=== PATIENT | female | born 1950 | race Caucasian/White ===

== ENCOUNTER 2024-01-13 00:22 | Emergency (ER) | payer OTHER, MEDICAID, SELFPAY ==
--- NOTE | 2024-01-13 01:11 | PC.NURSE ---
PT'S DAUGHTER SAID SHE WILL GO HOME. NO MORE BLEEDING.
--- NOTE | 2024-01-13 01:12 | PC.NURSE ---
NO ANSWER AT ER LOBBY OR OUTSIDE ER TO BE SEEN BY PROVIDER.
== END 2024-01-13 01:12 | disposition left against medical advice (07) ==
LOC: SERX 01:57
PROVIDERS: Emergency Provider Emergency Medicine
DX: Z53.21 Procedure and treatment not carried out due to patient leaving prior to being seen by health care provider (principal)

== ENCOUNTER 2024-03-29 18:32 | Emergency (ER) | payer OTHER, MEDICAID, SELFPAY ==
[2024-03-29 19:08] VITALS: BP 163/74; PULSE 96; RESP 19; TEMP 36.8; O2SAT 95
[2024-03-29 19:09] VITALS: BMI 26.2
--- NOTE | 2024-03-29 19:15 | EDRME_ITS ---
Rapid Medical Screening Exam [facility] [place] Arrival date/time: 03/29/24 18:32 73F with history of afib, COPD, ESRD, HTN, DM, and dementia presented with dysuria and yellow/green pus coming out of vaginal area. Patient/daughter deny sexual activity and are not suspicious of abuse. Chief Complaint: Urogenital-Female Vital signs: Vital Signs Temperature 98.2 F 03/29/24 19:08 Pulse Rate 96 03/29/24 19:08 Respiratory Rate 19 03/29/24 19:08 Blood Pressure 163/74 H 03/29/24 19:08 Pulse Oximetry (%) 95 03/29/24 19:08 Oxygen Delivery Method Room Air 03/29/24 19:08
[2024-03-29 20:00] LABS: Basophils # (Auto) 0.3 Thou/mm3 (0.0-0.2); Basophils % (Auto) 2 % (0-2.5); Eosinophils # (Auto) 0.3 Thou/mm3 (0.0-0.5); Eosinophils % (Auto) 1 % (0-10); Hematocrit 35.2 % (36.0-46.0); Hemoglobin 11.3 g/dL (12.0-16.0); Immature Granulocytes % (Auto) 5 % (0-0); Immature Granulocytes Auto 1.06 Thou/mm3 (0.00-0.00); Lymphocytes # (Auto) 2.4 Thou/mm3 (1.0-4.8); Lymphocytes % (Auto) 12 % (10-50); Mean Corpuscular HGB Conc 32.1 g/dl (31.0-37.0); Mean Corpuscular Hemoglobin 28.4 pg (25.0-35.0); Mean Corpuscular Volume 88 fL (80-100); Monocytes # (Auto) 2.6 Thou/mm3 (0.0-0.8); Monocytes % (Auto) 13 % (0-12); Neutrophils # (Auto) 13.5 Thou/mm3 (1.8-7.7); Neutrophils % (Auto) 67 % (37-80); Nucleated Red Blood Cell # 0.03 Thou/mm3 (0.00-0.00); Nucleated Red Blood Cell % 0 /100 WBC (0); Platelet Count 520 Thou/mm3 (140-440); RDW Standard Deviation 60.4 fL (36.4-46.3); Red Blood Count 3.98 Miln/mm3 (4.00-5.20)
[2024-03-29 20:01] LABS: Collection Type, Urine Catheter
[2024-03-29 20:10] LABS: Bilirubin,Urine Negative (Negative); Blood,Urine Trace (Negative); Clarity,Urine Clear (Clear/Hazy); Color,Urine Yellow (Lt Yel-Yel); Glucose, Urine 2+ (Negative); Hyaline Casts,Urine < 1 /hpf (0-1); Ketones,Urine Negative (Negative); Leukocyte Esterase,Urine Positive (Negative); Nitrite,Urine Negative (Negative); PH,Urine 7.5 (5.0-7.0); Protein,Urine 2+ (Neg - Trace); RBC,Urine 13 /hpf (0-3); Specific Gravity,Urine 1.014 (1.001-1.035); Squamous Epithelial Cell,Urine < 1 /hpf (0-5); Urobilinogen,Urine Negative mg/dL (0.0-1.0); WBC,Urine 25 /hpf (0-5)
[2024-03-29 20:18] LABS: Alanine Aminotransferase 38 U/L (10-49); Albumin, Serum 3.4 gm/dL (3.4-4.8); Albumin/Globulin Ratio 0.8 (1.2-2.2); Alkaline Phosphatase 206 U/L (46-116); Anion Gap 5 (7-16); Aspartate Amino Transferase 39 U/L (0-34); BUN/Creatinine Ratio 7 Ratio (12-20); Bilirubin,Total 0.2 mg/dL (0.3-1.2); Blood Urea Nitrogen 17 mg/dL (9-23); Calcium 9.2 mg/dL (8.3-10.6); Calcium (Corrected) 9.7 mg/dL (8.5-10.1); Carbon Dioxide 32.1 mMol/L (20.0-31.0); Chloride 101 mMol/L (98-107); Creatinine (Component) 2.6 mg/dL (0.6-1.3); Estimated Creatinine Clearance 14.8 mL/min (>60); Globulin 4.2 gm/dL (2.3-3.5); Glucose 217 mg/dL (74-106); Osmolality,Calculated 284 (275-295); Potassium 3.4 mMol/L (3.4-5.1); Sodium 138 mMol/L (136-145); Total Protein 7.6 gm/dL (5.7-8.2); eGFR 19 See Note
[2024-03-29 20:25] LABS: Culture Indicated,Urine Yes
--- NOTE | 2024-03-29 23:54 | PC.NURSE ---
no answer at er lobby or outside er to be put to room
--- NOTE | 2024-03-30 00:17 | PC.NURSE ---
NO ANSWER AT ER LOBBY OR OUTSIDE ER.
[2024-03-30 04:44] LABS: Path Review Blood Smear Sent to Pathologist
== END 2024-03-30 00:17 | disposition left against medical advice (07) ==
PROVIDERS: Physician Assistant; Emergency Provider Emergency Medicine; PCP Nurse Practitioner
DX: R30.0 Dysuria (principal); Z53.29 Procedure and treatment not carried out because of patient's decision for other reasons
CPT/HCPCS: 51701; 36415; 80053; 81001; 85025; 87086; 87491; 87591; 87661; 99281

== ENCOUNTER 2024-04-06 08:55 | Emergency (ER) | payer OTHER, MEDICAID, SELFPAY ==
[2024-04-06 08:59] VITALS: BP 119/54; PULSE 73; RESP 19; TEMP 36.6; O2SAT 95; BMI 22.3
--- NOTE | 2024-04-06 09:07 | PD.EDNV ---
Nausea/Vomit./Diarrhea-RME/HPI General Chief complaint: Nausea/Vomiting/Diarrhea Stated complaint: VOMITING/DIARRHEA Time Seen by Provider: 04/06/24 09:04 Arrival date/time: 04/06/24 08:55 Limitations: no limitations RME / HPI RME / HPI Narrative: Brought in by ambulance for vomiting and diarrhea for a month. Related Data Home Medications ?Medication ?Instructions ?Recorded ?Confirmed paroxetine HCl 40 mg tablet 40 mg PO QDAY 12/07/17 11/08/23 amlodipine 10 mg tablet 10 mg PO QDAY 05/15/18 11/13/23 sevelamer carbonate 800 mg tablet 800 mg PO TIDWM 01/22/19 11/08/23 (Renvela) albuterol sulfate 90 mcg/actuation 2 puff inhalation Q4H PRN SOB 06/05/19 11/08/23 aerosol inhaler (ProAir HFA) fluticasone propionate 50 1 puff inhalation BID 06/05/19 11/13/23 mcg/actuation blister powder for inhalation (Flovent Diskus) umeclidinium 62.5 mcg/actuation 1 puff inhalation QDAY 06/05/19 11/08/23 blister powder for inhalation (Incruse Ellipta) vitamin B comp no.3-folic acid 1 1 tab PO QDAY 07/09/23 11/08/23 mg-vit C 60 mg-biotin 300 mcg tablet (Donna-Ama Rx) buspirone 15 mg tablet 7.5 mg PO BID 07/10/23 11/08/23 carvedilol 3.125 mg tablet 3.125 mg PO BID 07/10/23 11/08/23 famotidine 40 mg tablet 40 mg PO QPM 07/10/23 11/08/23 hydrocodone 10 mg-acetaminophen 1 tab PO Q6H PRN pain 07/10/23 11/08/23 325 mg tablet insulin regular hum U-500 conc 500 See Rx Instructions .Route .COMPLEX 07/10/23 11/08/23 unit/mL(3 mL) subcut pen (Humulin R U-500 (Conc) Insulin Kwikpen) ropinirole 1 mg tablet 1 mg PO QPM 07/10/23 11/08/23 amiodarone 200 mg tablet 200 mg PO QDAY 11/08/23 11/08/23 diltiazem HCl 60 mg tablet 60 mg PO TID 11/08/23 11/08/23 Previous Rx's ?Medication ?Instructions ?Recorded apixaban 2.5 mg tablet (Eliquis) 2.5 mg PO BID #60 tabs 07/14/23 loperamide 2 mg tablet 2 mg PO Q6H PRN loose stool #10 04/06/24 (Anti-Diarrheal (loperamide)) tabs Allergies Allergy/AdvReac Type Severity Reaction Status Date / Time adhesive tape Allergy Severe Hives Verified 11/08/23 20:30 Latex, Natural Rubber Allergy Severe Hives Verified 11/08/23 20:30 Review of Systems Review of Systems Systems Reviewed: All systems reviewed, normal except as documented ED Exam General Limitations: Present no limitations General appearance: Present alert Head Head exam: Present atraumatic Eye Eye exam: Present normal appearance Neck Neck exam: Present normal inspection Respiratory Respiratory exam: Present normal lung sounds bilaterally Cardiovascular Cardiovascular exam: Present regular rate and normal rhythm Abdominal Exam Abdominal exam: Present soft and hyperactive bowel sounds Neurological Exam Neurological exam: Present alert and CN II-XII intact Psychiatric Psychiatric exam: Present normal affect Skin Skin exam: Present warm and dry Course Quality Measures none Orders Category Date Time Status CBC Stat Lab 04/06/24 09:45 Completed CMP [Comprehensive Metabolic Panel] Stat Lab 04/06/24 09:45 Completed c diff [Clostridium Difficile PCR] Stat Lab 04/06/24 Ordered Vital Signs Vital signs: Vital Signs Temperature 97.8 F 04/06/24 08:59 Pulse Rate 73 04/06/24 08:59 Respiratory Rate 19 04/06/24 08:59 Blood Pressure 119/54 L 04/06/24 08:59 Pulse Oximetry (%) 95 04/06/24 08:59 Oxygen Delivery Method Room Air 04/06/24 08:59 Nausea/Vomiting/Diarrhea MDM Narrative MDM Narrative:: Patient did not have any recent travels. Was not able to provide a stool sample while waiting in the emergency department. Etiology of her chronic diarrhea remains unremarkable. Her CBC showed leukocytosis, which is also a chronic condition, looking back at her other labs. Her chronic kidney disease is also a known condition and her BUN and creatinine are at her baseline. Patient data External records reviewed:: [facility] previous records Clinical information provided by:: patient and EMS Social determinants that could affect healthcare access:: none Patient has the following chronic illnesses:: Chronic kidney disease, chronic leukocytosis, chronic diarrhea How is presenting disease/condition affected by chronic disease/condition?: caused by Evaluation data The following diagnostics were reviewed and interpreted by me:: lab results Lab and/or radiology exams considered but not ordered:: See MDM Interpretation Summary: See MDM Medications / Prescriptions Medications / Prescriptions considered but not ordered:: Not applicable Medication administrations:: Not applicable Consultations Consultation(s) initiated? (list below): No Diagnosis Nausea Differential Diagnosis: gastroenteritis, clostridium difficile infection, drug-induced nausea and vomiting and dehydration Most likely diagnosis given after review of the tests above:: Chronic diarrhea. Chronic kidney disease. Chronic leukocytosis Admission Indicated Admission indicated?: not indicated Admission Request Was there a request for admission?: No Disposition Plan Disposition Plan: Discharge Discharge Attestation Discharge Attestation: The patient and all family members were given an opportunity to ask questions and understood the discharge instructions. Discharge instructions specifically effects, indications for sooner follow up or return to the emergency department, and the expected course of current diagnosis. Patient condition: Stable Discharge Plan Plan Patient Disposition: HOME (Self Care) Patient condition on transfer: Stable Prescriptions/Referrals Prescriptions/Med Rec: New loperamide [Anti-Diarrheal (loperamide)] 2 mg tablet 2 mg PO Q6H PRN (Reason: loose stool) Qty: 10 0RF No Action fluticasone propionate [Flovent Diskus] 50 mcg/actuation blister with device 1 puff inhalation BID Patient Comments: INHALE 1 PUFF BY MOUTH TWICE A DAY albuterol sulfate [ProAir HFA] 90 mcg/actuation HFA aerosol inhaler 2 puff inhalation Q4H PRN (Reason: SOB) Patient Comments: INHALE 2 PUFFS BY MOUTH EVERY 4 HOURS NEEDED Incruse Ellipta 62.5 mcg/actuation blister with device 1 puff inhalation QDAY Patient Comments: TAKE 1 PUFF BY MOUTH EVERY DAY paroxetine HCl 40 mg Tablet 40 mg PO QDAY amlodipine 10 mg Tablet 10 mg PO QDAY sevelamer carbonate [Renvela] 800 mg Tablet 800 mg PO TIDWM Rx Instructions: TAKES ONLY IF EATING Donna-Ama Rx 1-60-300 mg-mg-mcg Tablet 1 tab PO QDAY hydrocodone-acetaminophen 10-325 mg tablet 1 tab PO Q6H PRN (Reason: pain) famotidine 40 mg tablet 40 mg PO QPM ropinirole 1 mg tablet 1 mg PO QPM buspirone 15 mg tablet 7.5 mg PO BID carvedilol 3.125 mg tablet 3.125 mg PO BID Patient Comments: TAKE 1 TABLET BY MOUTH TWICE A DAY Rx Instructions: does not take in am of dialysis days (TTHS), but takes in the evening of dialysis days. Humulin R U-500 (Conc) Kwikpen 500 unit/mL (3 mL) insulin pen See Rx Instructions .ROUTE .COMPLEX Rx Instructions: ACHS, DEPENDING IF PT HAS BEEN EATING. BS= 180 TO 220: 5 UNITS BS= 221 TO 260: 10 UNITS BS >261: 15 UNITS Eliquis 2.5 mg tablet 2.5 mg PO BID Qty: 60 0RF Rx Instructions: Does not take in a.m. of dialysis days(TThS)- pt bleeds too much, but takes in the evening of dialysis days. amiodarone 200 mg Tablet 200 mg PO QDAY diltiazem HCl 60 mg Tablet 60 mg PO TID Rx Instructions: generic for Cardizem. Referrals: Imelda Young FNP [Primary Care Provider] - In 1 week Problem List Clinical Impression: Chronic diarrhea, Chronic kidney disease (CKD) Patient/Caregiver Discharge Instructions Print Language: Cuban Stand Alone Forms: [facility] Award Info., Patient Portal Info Letter
[2024-04-06 09:18] VITALS: PULSE 72; O2SAT 96
[2024-04-06 10:04] LABS: Basophils # (Auto) 0.2 Thou/mm3 (0.0-0.2); Basophils % (Auto) 1 % (0-2.5); Eosinophils # (Auto) 0.2 Thou/mm3 (0.0-0.5); Eosinophils % (Auto) 1 % (0-10); Hematocrit 31.5 % (36.0-46.0); Hemoglobin 10.3 g/dL (12.0-16.0); Immature Granulocytes % (Auto) 2 % (0-0); Immature Granulocytes Auto 0.38 Thou/mm3 (0.00-0.00); Lymphocytes # (Auto) 2.6 Thou/mm3 (1.0-4.8); Lymphocytes % (Auto) 11 % (10-50); Mean Corpuscular HGB Conc 32.7 g/dl (31.0-37.0); Mean Corpuscular Hemoglobin 29.2 pg (25.0-35.0); Mean Corpuscular Volume 89 fL (80-100); Monocytes # (Auto) 3.3 Thou/mm3 (0.0-0.8); Monocytes % (Auto) 14 % (0-12); Neutrophils # (Auto) 17.6 Thou/mm3 (1.8-7.7); Neutrophils % (Auto) 72 % (37-80); Nucleated Red Blood Cell % 0 /100 WBC (0); Platelet Count 336 Thou/mm3 (140-440); RDW Standard Deviation 64.4 fL (36.4-46.3); Red Blood Count 3.53 Miln/mm3 (4.00-5.20); White Blood Count 24.3 Thou/mm3 (3.6-11.0)
[2024-04-06 10:20] LABS: Alanine Aminotransferase 14 U/L (10-49); Albumin, Serum 2.9 gm/dL (3.4-4.8); Albumin/Globulin Ratio 0.8 (1.2-2.2); Alkaline Phosphatase 162 U/L (46-116); Anion Gap 8 (7-16); Aspartate Amino Transferase 18 U/L (0-34); BUN/Creatinine Ratio 10 Ratio (12-20); Bilirubin,Total 0.3 mg/dL (0.3-1.2); Blood Urea Nitrogen 51 mg/dL (9-23); Calcium 8.9 mg/dL (8.3-10.6); Calcium (Corrected) 9.8 mg/dL (8.5-10.1); Carbon Dioxide 28.8 mMol/L (20.0-31.0); Chloride 96 mMol/L (98-107); Creatinine (Component) 5.2 mg/dL (0.6-1.3); Estimated Creatinine Clearance 8.2 mL/min (>60); Globulin 3.6 gm/dL (2.3-3.5); Glucose 152 mg/dL (74-106); Osmolality,Calculated 283 (275-295); Potassium 3.4 mMol/L (3.4-5.1); Sodium 133 mMol/L (136-145); Total Protein 6.5 gm/dL (5.7-8.2); eGFR 8 See Note
--- NOTE | 2024-04-06 10:26 | PC.NURSE ---
Patient biba for c/o vomiting, diarrhea x1 mo and gen weakness. Patient is alert and oriented. Patient states has been vomiting x1 episode and diarrhea. Patient with hx of ESRD, on HD TTS. Patient lives with daughter whom assists with patient care. Updated with plan of care, call light within reach.
[2024-04-06 13:05] VITALS: BP 117/51; PULSE 65; RESP 16; TEMP 36.6; O2SAT 97
== END 2024-04-06 13:05 | disposition home or self-care (01) ==
PROVIDERS: Emergency Provider Emergency Medicine; PCP Nurse Practitioner
DX: N18.9 Chronic kidney disease, unspecified (principal); K52.9 Noninfective gastroenteritis and colitis, unspecified
CPT/HCPCS: 36415; 80053; 85025; 87493; 99283